=== PATIENT | female | born 1945 | race Caucasian/White ===

== ENCOUNTER 2018-09-10 04:07 | Inpatient (IN) | payer BC ==
[2018-09-10] MEDS ORDERED: ALBUTEROL/IPRATROPIUM (NEB) 3 ML AMP HHN (06:00)
[2018-09-10] MEDS ORDERED: ACETAMINOPHEN 325 MG TAB PO (06:00)
[2018-09-10] MEDS ORDERED: NACL 0.9% 3 ML SYG IV (06:00)
[2018-09-10] MEDS ORDERED: ONDANSETRON 4 MG INJ IV (06:00)
[2018-09-10] MEDS: SOD CHLORIDE 0.9% 1,000 ML IV ×2 (06:27→15:44)
[2018-09-10 08:10] LABS: ADD MAN DIFF? NO
[2018-09-10 08:15] LABS: WHITE BLOOD COUNT 6.9 10^3/ul (4.8-10.8)
[2018-09-10 08:15] LABS: BASOPHILS % 0.6 % (0.0-2.0); EOSINOPHILS # 0.6 10^3/ul (0.0-0.5); EOSINOPHILS % 9.1 % (0.0-7.0); HEMATOCRIT 25.7 % (37.0-47.0); HEMOGLOBIN 8.2 g/dl (12.0-16.0); LYMPHOCYTES # 1.8 10^3/ul (0.8-2.9); LYMPHOCYTES % 26.6 % (15.0-51.0); MEAN CORPUSCULAR HEMOGLOBIN 29.6 pg (29.0-33.0); MEAN CORPUSCULAR HGB CONC 31.9 g/dl (32.0-37.0); MEAN CORPUSCULAR VOLUME 92.8 fl (82.0-101.0); MEAN PLATELET VOLUME 9.9 fl (7.4-10.4); MONOCYTE # 0.5 10^3/ul (0.3-0.9); MONOCYTES % 7.2 % (0.0-11.0); NEUTROPHIL # 3.9 10^3/ul (1.6-7.5); NEUTROPHILS % 56.1 % (39.0-77.0); PLATELET COUNT 268 10^3/UL (140-415); RED BLOOD COUNT 2.77 10^6/ul (4.20-5.40); RED CELL DISTRIBUTION WIDTH 15.6 % (11.5-14.5)
[2018-09-10 08:37] LABS: ALANINE AMINOTRANSFERASE 17 IU/L (13-69); ALBUMIN 3.2 g/dl (3.3-4.9); ALKALINE PHOSPHATASE 53 IU/L (42-121); ANION GAP 6 (5-13); ASPARTATE AMINO TRANSFERASE 19 IU/L (15-46); BILIRUBIN,INDIRECT 0.2 mg/dl (0-1.1); BILIRUBIN,TOTAL 0.2 mg/dl (0.2-1.3); BLOOD UREA NITROGEN 55 mg/dl (7-20); CALCIUM 8.4 mg/dl (8.4-10.2); CARBON DIOXIDE 21 mmol/L (21-31); CHLORIDE 113 mmol/L (97-110); CHOL/HDL RATIO 2.5 RATIO; CHOLESTEROL 123 mg/dl (100-200); CREATININE 2.37 mg/dl (0.44-1.00); GLUCOSE 75 mg/dl (70-220); HDL CHOLESTEROL 49 mg/dl (33-92); LDL CHOLESTEROL,CALCULATED 54 mg/dl; POTASSIUM 4.9 mmol/L (3.5-5.1); SODIUM 140 mmol/L (135-144); TOTAL PROTEIN 6.1 g/dl (6.1-8.1); TRIGLYCERIDES 102 mg/dl (0-149)
[2018-09-10 09:13] LABS: HEMOGLOBIN A1C 5.3 % (0-5.9)
[2018-09-10] MEDS: HEPARIN 5,000 UNIT/1 ML VIAL SC (10:02)
[2018-09-10 15:00] LABS: ADD UMIC NO; UR ASCORBIC ACID NEGATIVE (NEGATIVE); UR BILIRUBIN (Dip) NEGATIVE (NEGATIVE); UR BLOOD (Dip) NEGATIVE (NEGATIVE); UR CLARITY CLEAR (CLEAR); UR COLOR STRAW (YELLOW); UR GLUCOSE (Dip) NEGATIVE (NEGATIVE); UR KETONES (Dip) NEGATIVE (NEGATIVE); UR LEUKOCYTE ESTERASE (Dip) NEGATIVE Leu/ul (NEGATIVE); UR NITRITE (Dip) NEGATIVE (NEGATIVE); UR TOTAL PROTEIN (Dip) NEGATIVE (NEGATIVE); UR UROBILINOGEN (Dip) NEGATIVE (NEGATIVE)
[2018-09-10 15:20] LABS: SODIUM,URINE RANDOM 89 mmol/L (30-90)
[2018-09-10 15:20] LABS: POTASSIUM,URINE RANDOM 13.9 mmol/L (25-125)
[2018-09-10 15:23] LABS: CREATININE,URINE RANDOM 38.92 mg/dl (20-320)
[2018-09-10 15:23] LABS: SODIUM,URINE RANDOM 90 mmol/L (30-90)
[2018-09-11] MEDS: GABAPENTIN 300 MG CAP PO ×3 (01:00→21:09)
[2018-09-11] MEDS: LATANOPROST 0.005% 2.5 ML OPH BOTH EYES ×2 (01:01→21:08)
[2018-09-11] MEDS: RANITIDINE 150 MG TAB PO ×3 (01:01→21:08)
[2018-09-11] MEDS: RANOLAZINE (SR) 500 MG TAB PO ×3 (01:01→21:08)
[2018-09-11] MEDS: SOD CHLORIDE 0.9% 1,000 ML IV ×3 (01:10→22:44)
[2018-09-11] MEDS: HEPARIN 5,000 UNIT/1 ML VIAL SC ×3 (01:10→21:23)
[2018-09-11 05:48] LABS: ADD MAN DIFF? NO
[2018-09-11 05:51] LABS: BASOPHIL # 0.1 10^3/ul (0.0-0.1); BASOPHILS % 0.7 % (0.0-2.0); EOSINOPHILS # 0.7 10^3/ul (0.0-0.5); EOSINOPHILS % 10.6 % (0.0-7.0); HEMATOCRIT 29.2 % (37.0-47.0); LYMPHOCYTES # 2.1 10^3/ul (0.8-2.9); LYMPHOCYTES % 29.9 % (15.0-51.0); MEAN CORPUSCULAR HEMOGLOBIN 29.1 pg (29.0-33.0); MEAN CORPUSCULAR HGB CONC 30.8 g/dl (32.0-37.0); MEAN CORPUSCULAR VOLUME 94.5 fl (82.0-101.0); MEAN PLATELET VOLUME 9.3 fl (7.4-10.4); MONOCYTE # 0.5 10^3/ul (0.3-0.9); MONOCYTES % 6.4 % (0.0-11.0); NEUTROPHIL # 3.6 10^3/ul (1.6-7.5); NEUTROPHILS % 52.1 % (39.0-77.0); PLATELET COUNT 256 10^3/UL (140-415); RED BLOOD COUNT 3.09 10^6/ul (4.20-5.40); RED CELL DISTRIBUTION WIDTH 15.6 % (11.5-14.5)
[2018-09-11 06:32] LABS: ANION GAP 5 (5-13); BLOOD UREA NITROGEN 31 mg/dl (7-20); CALCIUM 8.5 mg/dl (8.4-10.2); CARBON DIOXIDE 22 mmol/L (21-31); CHLORIDE 114 mmol/L (97-110); CREATININE 1.47 mg/dl (0.44-1.00); GLUCOSE 70 mg/dl (70-220); MAGNESIUM 1.8 mg/dl (1.7-2.5); PHOSPHORUS 3.2 mg/dl (2.5-4.9); SODIUM 141 mmol/L (135-144)
[2018-09-11] MEDS: ISOSORBIDE MONONITRATE(SR)60 MG TAB PO (09:29)
[2018-09-11] MEDS: DILTIAZEM (CD) 240 MG CAP PO (09:29)
[2018-09-11] MEDS: AMIODARONE 200 MG TAB PO (09:30)
[2018-09-11 15:57] LABS: CREATININE, RANDOM URINE 39 mg/dL (20-275); MICROALBUMIN <0.2 mg/dL; MICROALBUMIN/CREATININE RATIO NOTE (<30)
[2018-09-11] MEDS: ATORVASTATIN 20 MG TAB PO (21:08)
[2018-09-12 06:10] LABS: ADD MAN DIFF? NO
[2018-09-12 06:29] LABS: BASOPHIL # 0.1 10^3/ul (0.0-0.1); BASOPHILS % 0.8 % (0.0-2.0); EOSINOPHILS # 0.6 10^3/ul (0.0-0.5); EOSINOPHILS % 9.7 % (0.0-7.0); HEMATOCRIT 29.6 % (37.0-47.0); HEMOGLOBIN 9.3 g/dl (12.0-16.0); LYMPHOCYTES # 1.4 10^3/ul (0.8-2.9); LYMPHOCYTES % 21.9 % (15.0-51.0); MEAN CORPUSCULAR HGB CONC 31.4 g/dl (32.0-37.0); MEAN CORPUSCULAR VOLUME 92.2 fl (82.0-101.0); MEAN PLATELET VOLUME 9.6 fl (7.4-10.4); MONOCYTE # 0.5 10^3/ul (0.3-0.9); MONOCYTES % 7.5 % (0.0-11.0); NEUTROPHIL # 3.9 10^3/ul (1.6-7.5); NEUTROPHILS % 59.8 % (39.0-77.0); PLATELET COUNT 273 10^3/UL (140-415); RED BLOOD COUNT 3.21 10^6/ul (4.20-5.40); RED CELL DISTRIBUTION WIDTH 15.6 % (11.5-14.5)
[2018-09-12 06:29] LABS: WHITE BLOOD COUNT 6.6 10^3/ul (4.8-10.8)
[2018-09-12 06:42] LABS: ANION GAP 10 (5-13); BLOOD UREA NITROGEN 26 mg/dl (7-20); CALCIUM 8.4 mg/dl (8.4-10.2); CARBON DIOXIDE 22 mmol/L (21-31); CHLORIDE 109 mmol/L (97-110); CREATININE 1.25 mg/dl (0.44-1.00); GLUCOSE 79 mg/dl (70-220); MAGNESIUM 1.7 mg/dl (1.7-2.5); PHOSPHORUS 3.2 mg/dl (2.5-4.9); POTASSIUM 4.4 mmol/L (3.5-5.1); SODIUM 141 mmol/L (135-144)
[2018-09-12] MEDS: RANITIDINE 150 MG TAB PO (08:54)
[2018-09-12] MEDS: ISOSORBIDE MONONITRATE(SR)60 MG TAB PO (08:54)
[2018-09-12] MEDS: AMIODARONE 200 MG TAB PO (08:54)
[2018-09-12] MEDS: RANOLAZINE (SR) 500 MG TAB PO (08:54)
[2018-09-12] MEDS: DILTIAZEM (CD) 240 MG CAP PO (08:54)
[2018-09-12] MEDS: GABAPENTIN 300 MG CAP PO (08:55)
[2018-09-12] MEDS: HEPARIN 5,000 UNIT/1 ML VIAL SC (09:00)
== END 2018-09-12 16:20 | disposition home or self-care (01) | DRG 684 ==
LOC: 6WM 04:07
PROVIDERS: Internal Medicine
DX: N17.9 Acute kidney failure, unspecified (principal); E86.0 Dehydration; I48.0 Paroxysmal atrial fibrillation; D64.9 Anemia, unspecified; M10.9 Gout, unspecified; G47.30 Sleep apnea, unspecified; K21.9 Gastro-esophageal reflux disease without esophagitis; N18.9 Chronic kidney disease, unspecified; E11.22 Type 2 diabetes mellitus with diabetic chronic kidney disease; I12.9 Hypertensive chronic kidney disease with stage 1 through stage 4 chronic kidney disease, or unspecified chronic kidney disease
CPT/HCPCS: 70450; 76775; 80048; 80053; 80061; 81003; 82043; 82436; 82962; 83036; 83735; 84100; 84133; 84155; 84300; 84443; 85025; 87081; 97110; 97116; 97162; 97165; 97530